=== PATIENT | female | born 1975 | race Two or more races ===

== ENCOUNTER 2017-03-11 23:48 | Emergency (ER) | payer OTHER ==
[~2017-03-11] VITALS: Ht 162.6 cm; Wt 120.7 kg
[2017-03-12 00:01] VITALS: Ht 162.6 cm; Wt 120.7 kg
[2017-03-12 02:37] VITALS: BP 120/65
== END 2017-03-12 02:37 | disposition home or self-care (01) ==
LOC: ED 23:48
DX: K08.89 Other specified disorders of teeth and supporting structures (principal); Z88.0 Allergy status to penicillin

== ENCOUNTER 2020-05-12 09:35 | Emergency (ER) | payer MEDICAID ==
[~2020-05-12] VITALS: Ht 160 cm; Wt 132.9 kg
[2020-05-12 09:43] VITALS: Ht 160 cm; Wt 132.9 kg
[2020-05-12 11:21] VITALS: BP 125/71
== END 2020-05-12 11:21 | disposition home or self-care (01) ==
LOC: ED 09:35
DX: M25.512 Pain in left shoulder (principal); G89.29 Other chronic pain; Z88.0 Allergy status to penicillin; Z90.49 Acquired absence of other specified parts of digestive tract